=== PATIENT | female | born 1975 | race Caucasian/White ===

== ENCOUNTER 2019-04-24 10:31 | Inpatient (IN) ==
[2019-04-24] MEDS ORDERED: ELAVIL PO PRN (12:47)
[2019-04-24] MEDS ORDERED: NS 1,000 ML IV SCH (13:00)
--- NOTE | 2019-04-24 13:01 | Diag Imaging Result Doc PS360 ---
EXAM: CHEST-1 VIEW 04/24/2019 HISTORY: sepsis protocal TECHNIQUE: Erect AP portable at 1254 COMMENT: There is no evidence of acute cardiac or pulmonary disease. There are no previous studies. There are surgical clips in the left axilla. There are surgical skin clips in the right axillary region. IMPRESSION: No evidence of acute disease. Electronically signed by Rafat Medina 04/24/2019 12:59 PM
--- NOTE | 2019-04-24 13:06 | EKG Report ---
Test Performed on : 04/24/2019 12:57:55 PM Test Reason : tachycardia Blood Pressure : / mmHG Vent. Rate : 117 BPM Atrial Rate : 117 BPM P-R Int : 144 ms QRS Dur : 076 ms QT Int : 324 ms P-R-T Axes : 051 016 037 degrees QTc Int : 451 ms Sinus tachycardia. Otherwise normal ECG No previous ECGs available Confirmed by Viktor Sandoval MD ([id number]) on 04/27/2019 11:44:38 AM
[2019-04-24] MEDS: NORCO-5 PO PRN ×2 (13:17→19:57)
[2019-04-24] MEDS: NS 1,000 ML IV SCH (13:17)
[2019-04-24 14:11] LABS: INR 0.94; PROTIME 13.4 Seconds (11.0-16.0)
[2019-04-24 14:12] LABS: BASO# 0.02 X1000 (0.0-0.2); BASO% 0.1 % (0.0-0.8); EOS# 0.03 X1000 (0.0-0.7); EOS% 0.2 % (0.0-10.0); HEMATOCRIT 44.9 % (37.0-47.0); HEMOGLOBIN 14.8 g/dL (12.0-16.0); IMM GRAN# 0.05 X1000 (0.0-0.04); IMM GRAN% 0.4 % (0.0-0.5); LYMPH# 1.67 X1000 (1.2-3.4); LYMPH% 12.3 % (20.5-51.1); MONO# 1.08 X1000 (0.11-0.59); MONO% 7.9 % (1.7-9.3); MPV 10.1 FL (7.4-10.4); NEUT# 10.75 X1000 (1.4-6.5); NEUT% 79.1 % (42.2-75.2); PLT 260 X1000 (130-400)
[2019-04-24 14:13] LABS: PTT 34.8 Seconds (22.3-41.8)
[2019-04-24 14:21] LABS: AGAP 15; ALB/GLOB RATIO 1.7; ALBUMIN 4.7 g/dL (3.5-5.0); ALKALINE PHOSPHATASE 105 U/L (32-104); BUN 10 mg/dL (8-22); CALCIUM 9.7 mg/dL (8.8-10.2); CHLORIDE 96 mmol/L (98-107); CK PROFILE 55 U/L (24-173); COSMO 272; CREATININE 0.7 mg/dL (0.5-0.9); ESTIMATED GFR > 60; GLUCOSE 111 mg/dL (70-104); GOT 31 U/L (10-30); GPT 27 U/L (10-36); POTASSIUM 4.3 mmol/L (3.5-5.1); SODIUM 136 mmol/L (136-145); TCO2 25 mmol/L (25-35); TOTAL BILIRUBIN 0.39 mg/dL (0.20-1.00); TOTAL PROTEIN 7.4 g/dL (6.3-8.3)
[2019-04-24] MEDS: MAXIPIME 2 GM in NS 100 ML IV SCH ×2 (15:52→23:23)
[2019-04-24 16:23] LABS: URINE SOURCE CLEAN CATCH
[2019-04-24 16:36] LABS: BILIRUBIN URINE NEGATIVE (NEGATIVE); BLOOD URINE TRACE (NEGATIVE); COLOR YELLOW; GLUCOSE URINE NEGATIVE (NEGATIVE); KETONE URINE NEGATIVE (NEGATIVE); LEUKOCYTES URINE LARGE (NEGATIVE); NITRITE URINE NEGATIVE (NEGATIVE); PROTEIN URINE TRACE mg/dL (NEGATIVE); SP GRAVITY URINE 1.016; TURBIDITY URINE HAZY (CLEAR); UROBILINOGEN URINE NORMAL (NORMAL)
[2019-04-24 16:37] LABS: UR EPITHELIAL CELLS <10 /HPF (<10); URINE BACTERIA NEGATIVE /HPF; URINE RBC <10 /HPF (<10); URINE WBC TNTC /HPF (<10)
[2019-04-24] MEDS: DEPAKOTE ER PO SCH ×4 (19:57→20:14)
[2019-04-24] MEDS: NEURONTIN PO SCH ×2 (19:58→20:14)
[2019-04-24] MEDS: DESYREL PO SCH (19:59)
[2019-04-24] MEDS: ZOFRAN IV PRN (20:05)
[2019-04-24] MEDS: TYLENOL PO PRN (20:56)
--- NOTE | 2019-04-24 22:00 | INFECTIOUS DISEASE PROGRESS NO ---
DATE: 04/24/2019 PRESENT ILLNESS: Ms. Oquendo came into the office this morning with a fever, nausea, vomiting, fatigue, and various areas of cellulitis. She has an underlying diagnosis of Re-Re disorder. When we saw her in the office last month she did have an oxacillin sensitive Staph aureus for which we prescribed Keflex, which she never took. MEDICATIONS: She does state that she started the oral Keflex we ordered last month about 4 days ago when she says her symptoms started getting worse. Today we will start her on cefepime 2 g IV every 8 hours. PHYSICAL EXAMINATION: Vital Signs: Temp 102.9, pulse rate 110, respiratory rate 18, blood pressure 139/61. O2 sat 100% on room air. Weight of 79 kg, with height of 5 feet 3 inches. General: This is a chronically ill-appearing, middle-aged female. She is sitting up in bed currently in mild distress due to pain, particularly to the genitalia. HEENT: Atraumatic, normocephalic. Oral mucous membranes are pink and moist. Conjunctivae are pink. Neck: Supple. Trachea is midline. Cardiovascular: Heart rate and rhythm are regular and fast, sinus tach on the monitor. Respiratory: Lung sounds are clear to auscultation bilaterally. No work of breathing is noted. Abdomen: Soft, obese and nontender. Bowel sounds are active. Neurologic: She is awake, alert and oriented, and able to ambulate slowly, but independently. Integumentary: Skin is hot, dry and she has multiple scars to the groin and axilla from previous surgeries. There are currently areas of irritated, erythematous, plaque lesions to her left axilla and midabdomen above the umbilicus. She also has draining lesions around the rectum, right perineum, and vaginal area. Drainage has a white-steven color, and has been cultured. LABORATORY AND X-RAY: Today her white count is 13.6, hemoglobin 14.8, platelet count 206,000. Creatinine is 0.7, estimated GFR is greater than 60. Total bilirubin is 0.39, AST 31, ALT 27, alkaline phosphatase 105. There are two genital cultures and blood cultures which are pending. I sent a right perineal culture which appears to have been labeled "right leg" by the lab. Her EKG shows a sinus tach on the unconfirmed report and chest x-ray shows no evidence of acute disease. ASSESSMENT AND PLAN: Ms. Oquendo is being treated for various areas of cellulitis which have worsened just within the past two days. She states burning and irritation started to her rectum initially and then moved to the vagina yesterday with a rash and drainage, as well as a fever. She states symptoms started 4 days ago and have now progressed to the genitalia after being present to the left axillary and mid abdomen which are also sore, but less painful than the genital lesions. She does have a history of Re-[place] disorder that was diagnosed when she was 25 years old. We have been treating her for the last 2 years on and off for oxacillin-sensitive Staph aureus and strep infections. At this point, she is requesting vancomycin and cefepime; however, we have no documentation of MRSA over the last two years, so at this point we will give her cefepime 2 g IV every 8 hours as a solitary treatment. We will await blood and genitalia cultures. As is her routine, we will need to insert a PICC line and she should be able to go home with antibiotics once culture results are obtained and PICC line is in place. These plans have been discussed with and recommended by Dr. España. COMORBIDITIES: For Ms. 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 Dictated by BLAIR Leija for Krzysztof España MD cc: Krzysztof España MD MTDBob
--- NOTE | 2019-04-24 22:23 | HISTORY AND PHYSICAL ---
CHIEF COMPLAINT: "I am breaking cellulitis." HISTORY OF PRESENT ILLNESS: This is a 43-year-old female with a history of Re-Re skin disorder, high cholesterol, hypothyroid, fibromyalgia, depression and borderline personality disease. She presents as a direct admit from Dr. Krzysztof España's office with cellulitis failed outpatient treatment. The patient has had this cellulitis that is present to the left axillary area, around her umbilicus, bilateral groin, genitalia. It is around her gluteal folds and rectum. She presented to Dr. España's office with a temperature of a 102.3 degrees. She was tachycardic, complaining of nausea, vomiting. PAST MEDICAL HISTORY: 1. Re-Re disease. 2. High cholesterol. 3. Hypothyroid. 4. Anxiety, depression. 5. Borderline personality disorder. 6. Fibromyalgia. PAST SURGICAL HISTORY: Hysterectomy, breast reduction, skin graft to the underarm and groin areas. ALLERGIES: No known drug allergies. HOME MEDICATIONS: A list will be obtained by the nursing staff and once verified will be restarted as appropriate. REVIEW OF SYSTEMS: Discussed patient with pertinent positives stated in HPI. She denied any syncope, dizziness, chest pain, palpitations, any shortness of breath, cough, fever, chills, any recent weight loss or weight gain, any diarrhea, constipation, black or bloody vomitus or stools, hematuria, frequency, urgency. PHYSICAL EXAMINATION: GENERAL: This is a 43-year-old female who is sitting up in the bed in mild distress. VITAL SIGNS: Blood pressure is 139/61 with a heart rate of 107, respirations are 18, temperature is 102.9 degrees, room air saturations are 100%. EYES: Pupils are equal, round, react to light. EOMs are intact. Sclerae are anicteric. HEENT: Head is normocephalic, atraumatic. Mucous membranes are moist. NECK: Supple with trachea midline. CARDIOVASCULAR: Regular rate and rhythm. S1, S2 appreciated. She has no lower extremity edema. Peripheral pulses are palpable x4 extremities. Calves are nontender bilateral with palpation. PULMONARY: Breath sounds are clear with no increased work of breathing noted. Chest rises and falls symmetric with respiration. GASTROINTESTINAL: Abdomen is soft, nontender, nondistended with bowel sounds in all 4 quadrants. NEUROLOGIC: She is alert and oriented x3. SKIN: Warm and dry with fascicular patches noted around the umbilicus, left axillary area to the inner labia extending into the vaginal area to the perineum, around the rectal area. Areas are white as she has Desitin applied to most of these areas. ASSESSMENT AND PLAN: 1. Re-Re disease, unspecified cellulitis. Wound culture was taken in Dr. España's office. We will order blood cultures as well as a urine culture. Antibiotic coverage will be per Dr. España's expertise. 2. Fever secondary to #1. Use Tylenol as needed. 3. Tachycardia. IV hydration and follow vital signs. 4. Pain. We will continue her home medications once verified. 5. Borderline personality disorder. We will continue her home medications. check a BMP and a CBC in the morning. consult Dr. España. Discussed with Dr Miller Further treatments pending hospital course. Dictated by BLAIR Whitlock for Asiya Miller MD cc: BLAIR Whitlock MD [facility]
[2019-04-25] MEDS: NS 1,000 ML IV SCH ×2 (01:01→13:24)
[2019-04-25] MEDS ORDERED: HALL'S COUGH LOZENGE MT ONE (05:30)
[2019-04-25] MEDS: TYLENOL PO PRN ×3 (06:16→22:07)
[2019-04-25] MEDS: PRILOSEC PO SCH (06:16)
[2019-04-25] MEDS: MAXIPIME 2 GM in NS 100 ML IV SCH ×2 (07:44→16:13)
[2019-04-25] MEDS: NORCO-5 PO PRN (07:45)
[2019-04-25 07:54] LABS: BASO# 0.01 X1000 (0.0-0.2); BASO% 0.1 % (0.0-0.8); EOS# 0.02 X1000 (0.0-0.7); EOS% 0.2 % (0.0-10.0); HEMATOCRIT 37.7 % (37.0-47.0); HEMOGLOBIN 12.4 g/dL (12.0-16.0); IMM GRAN# 0.05 X1000 (0.0-0.04); IMM GRAN% 0.4 % (0.0-0.5); LYMPH# 1.12 X1000 (1.2-3.4); LYMPH% 9.5 % (20.5-51.1); MCH 29.4 PG (27-31); MCHC 32.9 g/dL (33-37); MCV 89.3 FL (81-99); MONO# 1.09 X1000 (0.11-0.59); MONO% 9.3 % (1.7-9.3); MPV 10.3 FL (7.4-10.4); NEUT# 9.45 X1000 (1.4-6.5); NEUT% 80.5 % (42.2-75.2); PLT 199 X1000 (130-400); RBC 4.22 XMIL (4.2-5.4); RDW 12.8 % (11.5-14.5); WBC 11.74 X1000 (4.8-10.8)
[2019-04-25 07:59] LABS: AGAP 15; BUN 7 mg/dL (8-22); CALCIUM 8.3 mg/dL (8.8-10.2); CHLORIDE 99 mmol/L (98-107); COSMO 272; CREATININE 0.7 mg/dL (0.5-0.9); ESTIMATED GFR > 60; GLUCOSE 130 mg/dL (70-104); POTASSIUM 3.8 mmol/L (3.5-5.1); SODIUM 136 mmol/L (136-145); TCO2 22 mmol/L (25-35)
[2019-04-25] MEDS: VALTREX PO SCH ×2 (10:42→21:23)
[2019-04-25] MEDS: NEURONTIN PO SCH ×2 (10:43→20:25)
[2019-04-25] MEDS: CYMBALTA PO SCH (10:43)
[2019-04-25] MEDS: ABILIFY PO SCH (10:43)
[2019-04-25] MEDS: MYCOSTATIN SUSP PO SCH ×3 (13:19→20:25)
[2019-04-25] MEDS: NORCO-7.5 PO PRN ×2 (14:46→22:17)
[2019-04-25] MEDS: ZOFRAN IV PRN ×2 (14:47→20:44)
--- NOTE | 2019-04-25 16:05 | Diag Imaging Result Doc PS360 ---
EXAM: CT ABD/PELVIS W/IV CONT ONLY INDICATION: abdominal pain TECHNIQUE: This exam was performed using automated exposure control, adjustment of mA or kV according to patient size, and/or use of iterative reconstruction technique. COMPARISON: None. FINDINGS: There is trace subsegmental atelectasis at the left lung base. There is moderate diffuse hepatic steatosis. The spleen is borderline prominent. The pancreas and adrenal glands are unremarkable. There is a 1.7 cm low dense focus associated with the left renal cortex. It is higher density than that of simple fluid. It probably represents a cyst containing blood products or proteinaceous debris. But is technically nonspecific. There is no obvious enhancement. If warranted, follow-up with ultrasound could be performed to assure stability. The kidneys are unremarkable, otherwise. The urinary bladder is unremarkable. There is evidence of a prior hysterectomy. The most inferior portion of the rectum is out of the [id number]. The appendix is normal. There is no focal bowel wall thickening. There are a few nondistended loops of small bowel that contain air-fluid levels. There are nonspecific. It could represent mild ileus. There is no obstructive bowel pattern. There is a very small hiatal hernia. The remainder of the GI tract is essentially unremarkable. IMPRESSION: 1.Hepatic steatosis. 2.Low dense left renal nodular focus that probably represents a blood filled cyst. Please see above discussion. 3.A few nondistended loops of small bowel containing air-fluid levels that are nonspecific, possibly a mild ileus. Electronically signed by Min Salas 04/25/2019 4:02 PM
[2019-04-25] MEDS: DEPAKOTE ER PO SCH ×2 (20:26→20:28)
[2019-04-25] MEDS: DESYREL PO SCH (20:28)
[2019-04-25] MEDS: COLACE PO SCH (20:30)
[2019-04-25] MEDS: ANUSOL-HC CREAM PR SCH (20:30)
[2019-04-25] MEDS: MIRALAX PO SCH (20:30)
--- NOTE | 2019-04-25 20:30 | INFECTIOUS DISEASE PROGRESS NO ---
DATE: 04/25/2019 PRESENT ILLNESS: The patient has Re-Re disease and has developed severe cellulitis because of that illness. She has axillary cellulitis, an area of cellulitis on her abdominal wall and also vaginal cellulitis. Today it was discovered that she has these white vesicular lesions which I think could be due to herpes simplex. In the past the patient has had oxacillin sensitive Staph aureus cellulitis infections. MEDICATIONS: The patient is on cefepime. PHYSICAL EXAMINATION: Temperature is 100.7 degrees, pulse 108, respirations 22, blood pressure 93/49.General: This is an ill-appearing young female. She is in no acute distress. Head/eyes/ears/nose/throat: She can hear my spoken words and see near objects. Patient has white coating of her tongue and also there are erythematous areas at the corners of her mouth also. Neck: No meningismus. Lungs: Clear to auscultation. Cardiovascular: Heart rate is regular. Abdomen: Soft and nontender. There is approximately a 4 x 1.5 cm area on her abdominal wall that is erythematous. Pelvic: Patient's vaginal area is erythematous. There are numerous vesicular lesions also. Neurologic: Patient is alert. She ambulates without difficulty. There is no tremor. LAB AND X-RAY: Patient's chest x-ray showed no evidence of acute disease. The laboratory studies show a CBC with a white count of 11,740, hemoglobin 12.4 and platelet count 199,000. Creatinine is 0.7. GFR is greater than 60. Urine culture and vaginal culture are negative. ASSESSMENT AND PLAN: The patient has areas of cellulitis as mentioned above. The patient has oral candidiasis. My plan is to continue cefepime. I have taken some swabs from her vaginal area and sent them for HSV by PCR. I am also going to start the patient on nystatin. Also, in view of the fact that the patient is having so many infections I am going to check her immunoglobulin levels also. COMORBIDITIES: The main comorbidity is that the patient has a Re-Re disease which unfortunately predisposes her to getting cutaneous infections. cc: Krzysztof España MD
[2019-04-25] MEDS: LOVENOX SUBQ SCH (20:31)
[2019-04-26] MEDS: NS 1,000 ML IV SCH ×3 (00:14→18:28)
[2019-04-26] MEDS: ZOFRAN IV PRN ×3 (00:15→16:43)
[2019-04-26] MEDS: MAXIPIME 2 GM in NS 100 ML IV SCH ×3 (00:18→16:42)
[2019-04-26] MEDS: TYLENOL PO PRN (04:04)
[2019-04-26] MEDS: NORCO-7.5 PO PRN ×3 (04:05→22:44)
[2019-04-26] MEDS: PRILOSEC PO SCH ×2 (05:31→06:21)
[2019-04-26 06:40] LABS: BASO# 0.01 X1000 (0.0-0.2); BASO% 0.1 % (0.0-0.8); HEMATOCRIT 34.5 % (37.0-47.0); HEMOGLOBIN 11.2 g/dL (12.0-16.0); IMM GRAN# 0.02 X1000 (0.0-0.04); IMM GRAN% 0.2 % (0.0-0.5); LYMPH# 0.88 X1000 (1.2-3.4); LYMPH% 8.5 % (20.5-51.1); MCH 29.2 PG (27-31); MCHC 32.5 g/dL (33-37); MCV 89.8 FL (81-99); MONO# 0.75 X1000 (0.11-0.59); MONO% 7.2 % (1.7-9.3); MPV 9.9 FL (7.4-10.4); NEUT# 8.65 X1000 (1.4-6.5); PLT 186 X1000 (130-400); RBC 3.84 XMIL (4.2-5.4); RDW 12.7 % (11.5-14.5); WBC 10.41 X1000 (4.8-10.8)
[2019-04-26 07:08] LABS: AGAP 9; BUN 5 mg/dL (8-22); CALCIUM 8.2 mg/dL (8.8-10.2); CHLORIDE 104 mmol/L (98-107); COSMO 274; CREATININE 0.6 mg/dL (0.5-0.9); ESTIMATED GFR > 60; GLUCOSE 116 mg/dL (70-104); POTASSIUM 3.6 mmol/L (3.5-5.1); SODIUM 138 mmol/L (136-145); TCO2 25 mmol/L (25-35)
[2019-04-26] MEDS: VALTREX PO SCH ×3 (08:20→22:34)
[2019-04-26] MEDS: MYCOSTATIN SUSP PO SCH ×4 (08:20→22:43)
[2019-04-26] MEDS: MIRALAX PO SCH ×2 (08:20→22:34)
[2019-04-26] MEDS: SYNTHROID PO SCH (08:21)
[2019-04-26] MEDS: COLACE PO SCH ×2 (08:21→22:33)
[2019-04-26] MEDS: NEURONTIN PO SCH ×2 (08:21→22:33)
[2019-04-26] MEDS: ABILIFY PO SCH (08:21)
[2019-04-26] MEDS: CYMBALTA PO SCH (08:21)
[2019-04-26] MEDS: BACTROBAN OINTMENT TOP SCH ×3 (08:22→18:28)
[2019-04-26] MEDS: ANUSOL-HC CREAM PR SCH ×2 (08:23→22:50)
[2019-04-26] MEDS ORDERED: SYNTHROID PO SCH (09:30)
[2019-04-26] MEDS: LACTULOSE PO SCH ×3 (09:58→22:50)
--- NOTE | 2019-04-26 22:10 | PROGRESS NOTE ---
DATE: 04/26/2019 SUBJECTIVE: The patient continues to complain of nausea and pain with swallowing. OBJECTIVE: T-max 100.5 degrees, blood pressure 104/50, heart rate 95, respirations 16, O2 saturation 96% on room air.General: This is a middle-aged female sitting up in bed, in no acute distress. Heart: S1, S2 normal. Regular rate and rhythm. Lungs clear to auscultation bilaterally. Abdomen: Positive bowel sounds. Soft, nontender, nondistended. Extremities: No edema. No cyanosis. Neurologic: The patient is alert and oriented x3. LABORATORY DATA: Hemoglobin 11, hematocrit 34, white blood cell count 10. BUN 5, creatinine 0.6, glucose 116, calcium 8.2. ASSESSMENT AND PLAN: 1. Re-Re disease with severe cellulitis involving the abdomen, axilla and vaginal region. Continue with antibiotic and antiviral therapy as directed by Dr. España. 2. Oral candidiasis. The patient is on nystatin swish and spit. 3. Nausea with odynophagia. Gastroenterology has been consulted for consideration of esophagogastroduodenoscopy. 4. Neuropathy. Continue on gabapentin. 5. Constipation. Continue with scheduled laxative therapy. 6. Hypothyroidism. Continue on Synthroid. 7. Deep vein thrombosis prophylaxis. Continue on Lovenox. cc: Asiya Miller MD MTDD
[2019-04-26] MEDS: LOVENOX SUBQ SCH (22:33)
[2019-04-26] MEDS: DEPAKOTE ER PO SCH ×2 (22:33)
[2019-04-26] MEDS: DESYREL PO SCH (22:34)
[2019-04-27] MEDS: MAXIPIME 2 GM in NS 100 ML IV SCH ×4 (01:18→23:24)
[2019-04-27] MEDS: TYLENOL PO PRN (05:36)
[2019-04-27 06:09] LABS: HEMOGLOBIN 10.9 g/dL (12.0-16.0); MCH 29.9 PG (27-31); MCHC 32.1 g/dL (33-37); MCV 93.2 FL (81-99); MPV 9.7 FL (7.4-10.4); RBC 3.65 XMIL (4.2-5.4); RDW 13.2 % (11.5-14.5); WBC 5.43 X1000 (4.8-10.8)
[2019-04-27] MEDS: NS 1,000 ML IV SCH ×2 (06:11→20:19)
[2019-04-27] MEDS: PRILOSEC PO SCH (06:11)
[2019-04-27 06:21] LABS: AGAP 9; BUN 3 mg/dL (8-22); CALCIUM 8.3 mg/dL (8.8-10.2); CHLORIDE 106 mmol/L (98-107); COSMO 281; CREATININE 0.6 mg/dL (0.5-0.9); ESTIMATED GFR > 60; GLUCOSE 96 mg/dL (70-104); POTASSIUM 3.6 mmol/L (3.5-5.1); SODIUM 143 mmol/L (136-145); TCO2 28 mmol/L (25-35)
[2019-04-27] MEDS ORDERED: GAMUNEX-C 10% IV ONE (08:00)
[2019-04-27] MEDS: ABILIFY PO SCH (08:10)
[2019-04-27] MEDS: CYMBALTA PO SCH (08:11)
[2019-04-27] MEDS: NEURONTIN PO SCH ×2 (08:11→21:44)
[2019-04-27] MEDS: VALTREX PO SCH ×3 (08:11→21:44)
[2019-04-27] MEDS: MYCOSTATIN SUSP PO SCH ×4 (08:11→21:43)
[2019-04-27] MEDS: SYNTHROID PO SCH (08:12)
[2019-04-27] MEDS: LACTULOSE PO SCH ×2 (08:12→23:19)
[2019-04-27] MEDS: ANUSOL-HC CREAM PR SCH ×2 (08:12→23:20)
[2019-04-27] MEDS: MIRALAX PO SCH ×2 (08:12→23:19)
[2019-04-27] MEDS: COLACE PO SCH ×2 (08:12→21:44)
[2019-04-27] MEDS: BACTROBAN OINTMENT TOP SCH ×3 (11:04→17:48)
[2019-04-27] MEDS: ZOFRAN IV PRN (12:15)
[2019-04-27] MEDS ORDERED: BENADRYL IV ONE (12:48)
[2019-04-27] MEDS ORDERED: SOLU-MEDROL IV ONE (12:49)
[2019-04-27] MEDS ORDERED: SODIUM CHLORIDE 0.9% INJ ONE (12:50)
[2019-04-27] MEDS ORDERED: PEPCID IV ONE (12:50)
[2019-04-27] MEDS: NORCO-7.5 PO PRN ×2 (13:11→23:18)
--- NOTE | 2019-04-27 16:16 | PROGRESS NOTE ---
DATE: 04/27/2019 SUBJECTIVE: The patient states that she continues to have pain when she tries to swallow, as well as nausea. OBJECTIVE: Vital Signs: Temperature 98.4 degrees, blood pressure 128/79, heart rate 81, respirations 16, O2 saturation is 100% on room air. General: This is a middle- aged female sitting up in bed in no acute distress. Heart: S1, S2 normal. Regular rate and rhythm. Lungs: Equal air entry bilaterally. No crackles. No rales. Abdomen: Positive bowel sounds. Soft, nontender, nondistended. Extremities: No edema. No cyanosis. Neuro: The patient is alert and oriented x 4. LABORATORY DATA: Reviewed. ASSESSMENT/PLAN: 1. Re-Re disease with severe cellulitis involving the axilla, abdomen and vaginal region. Continue with antibiotic and antiviral therapy as directed by Dr. España. 2. Oral candidiasis. Continue on Nystatin. 3. Nausea with odynophagia. Patient is scheduled to undergo an esophagogastroduodenoscopy tomorrow. 4. Neuropathy. Continue on gabapentin. 5. Hypothyroidism. Continue on Synthroid. 6. Constipation. Continue with the laxative therapy. 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 8. Deep vein thrombosis prophylaxis. We will hold the Lovenox due to the scheduled endoscopy tomorrow. cc: Asiya Miller MD MTDD
[2019-04-27] MEDS: DEPAKOTE ER PO SCH ×2 (21:43)
[2019-04-27] MEDS: DESYREL PO SCH (21:43)
[2019-04-28] MEDS: ZOFRAN IV PRN (00:10)
[2019-04-28] MEDS: ATIVAN IV PRN ×2 (00:10→12:11)
[2019-04-28] MEDS: NS 1,000 ML IV SCH ×2 (03:56→07:37)
--- NOTE | 2019-04-28 04:11 | PROGRESS NOTE ---
DATE: 04/25/2019 SUBJECTIVE: The patient complains of odynophagia and nausea. OBJECTIVE: Vital Signs: Temperature 100.4 degrees, blood pressure 116/57, heart rate 110, respirations 18, O2 saturation 98% on room air. General: This is a middle-aged female sitting up in bed in no acute distress. Head: Normocephalic, atraumatic. Heart: S1, S2 normal. Tachycardic. Lungs: Equal air entry bilaterally. No wheezing. No rales. No rhonchi. Abdomen: Positive bowel sounds. Soft, nontender, nondistended. Skin: The patient has multiple scars in the groin and axilla. Genitalia: The patient has multiple draining lesions involving the rectum, perineum, and vaginal areas. LABS: White blood cell count 11, hemoglobin 12, hematocrit 37. Sodium 136, potassium 3.8, chloride 99, CO2 22, BUN 7, creatinine 0.7. ASSESSMENT AND PLAN: 1. Cellulitis involving the rectum, perineum, and vaginal areas. We will continue with antibiotic therapy as directed by Dr. España. 2. Odynophagia. The patient has oral candidiasis. The patient may also have esophagitis. Will consult with GI. 3. Nausea with vomiting. A CT of the abdomen and pelvis is currently pending. Will continue with a full liquid diet and plus on antiemetics. 4. Leukocytosis. Improved. Continue with the current antibiotic regimen. 5. Hypothyroidism. Continue on Synthroid. 6. Borderline personality disorder. Continue on the current psychiatric medications. 7. Deep vein thrombosis prophylaxis. Will start the patient on Lovenox. cc: MD LIEN Alarcon
[2019-04-28] MEDS: PRILOSEC PO SCH (06:08)
[2019-04-28 06:18] LABS: HEMATOCRIT 35.6 % (37.0-47.0); HEMOGLOBIN 11.7 g/dL (12.0-16.0); MCH 29.9 PG (27-31); MCHC 32.9 g/dL (33-37); MPV 10.4 FL (7.4-10.4); RBC 3.91 XMIL (4.2-5.4); RDW 13.2 % (11.5-14.5); WBC 7.82 X1000 (4.8-10.8)
[2019-04-28 06:38] LABS: AGAP 13; BUN 6 mg/dL (8-22); CALCIUM 8.4 mg/dL (8.8-10.2); CHLORIDE 106 mmol/L (98-107); COSMO 283; CREATININE 0.6 mg/dL (0.5-0.9); ESTIMATED GFR > 60; GLUCOSE 107 mg/dL (70-104); POTASSIUM 4.2 mmol/L (3.5-5.1); SODIUM 143 mmol/L (136-145); TCO2 24 mmol/L (25-35)
[2019-04-28] MEDS: MAXIPIME 2 GM in NS 100 ML IV SCH (09:36)
[2019-04-28] MEDS: COLACE PO SCH (09:36)
[2019-04-28] MEDS: VALTREX PO SCH (09:38)
[2019-04-28] MEDS: ABILIFY PO SCH (09:38)
[2019-04-28] MEDS: NEURONTIN PO SCH (09:38)
[2019-04-28] MEDS: SYNTHROID PO SCH (09:38)
[2019-04-28] MEDS: CYMBALTA PO SCH (09:39)
[2019-04-28] MEDS: LACTULOSE PO SCH (09:39)
[2019-04-28 11:48] VITALS: BP 141/66
[2019-04-28] MEDS ORDERED: NEXIUM IV SCH (12:00)
[2019-04-28] MEDS ORDERED: SODIUM CHLORIDE 0.9% INJ SCH (12:00)
--- NOTE | 2019-04-28 15:40 | INFECTIOUS DISEASE PROGRESS NO ---
DATE: 04/28/2019 PRESENT ILLNESS: The patient has Re-Re disease and the patient came in with severe cellulitis in the axillary area. There is also an area on the abdominal wall. The patient also had vaginal cellulitis. A culture taken from the axillary area as an outpatient grew group B. From the vaginal area a specimen was sent for HSV by PCR which was positive. Therefore the patient had herpes vaginal cellulitis. 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 The IgA level was 198. The patient received infusion of IVIG and tolerated it well. The patient also developed oral candidiasis. MEDICATIONS: The patient is on cefepime, Valtrex and nystatin swish and swallow. The patient also received an infusion of IVIG and tolerated it well. PHYSICAL EXAMINATION: Vital Signs: Temperature is 98.3 degrees, pulse 51, respirations 20, blood pressure 139/65. General: This is a somewhat ill-appearing young female. She is in no acute distress. Head, eyes, ears, nose, and throat: She can hear my spoken words and see near objects. She does not have any white coating on her tongue now. Neck: No meningismus. Lungs: Clear to auscultation. Cardiovascular: Heart rate is regular. Abdomen: Soft and nontender. Pelvic: The patient's vaginal area shows decrease in the vesicles. Also in the perirectal area there are some vesicles. The patient's erythema in her left axilla and on her abdominal wall has gotten much better also. Neurologic: The patient is lethargic. She can move her extremities. She is arousable and can talk in a coherent fashion. LAB AND X-RAY: The patient's CBC today shows a white count of 7820, hemoglobin 11.7, and platelet count 244,000. The patient's creatinine is 0.6. GFR is greater than 60. The patient's PCR from the vaginal area was positive for herpes simplex virus type 1. A culture taken at the office by my nurse practitioner grew group B Streptococcus. ASSESSMENT AND PLAN: The patient is going home today. She is going home on Valtrex 1 g p.o. every 12 hours for 1 week. She is also going to be on amoxicillin 500 mg p.o. every 8 hours. That will also be for 1 week and the patient will be going home on nystatin as well. I have electronically sent the prescriptions to the patient's pharmacy of her choice. The plan is to have the patient come back to my office in 1 week. As regarding the patient's immunoglobulin deficiency, a repeat IgG and IgA will be done in 8 weeks and if the IgG level is low then I think the patient would be a candidate for IVIG. She has recurrent episodes of sore throat. She also has recurrent episodes of cellulitis that caused the patient to be admitted to the hospital this time and the patient also has recurrent urinary tract infections. COMORBIDITY: She has Re-Re disease. cc: Krzysztof España MD MTDD
--- NOTE | 2019-04-28 17:18 | GASTROENTEROLOGY PROGRESS NOTE ---
DATE: 04/28/2019 SUBJECTIVE: Patient is resting in bed. She is feeling better. She denies any nausea or vomiting. She denies abdominal pain. She is on broad-spectrum antibiotics by Dr. España for Re-Re disease with severe cellulitis involving the left axilla, abdominal wall, and vaginal region. I also spoke to Dr. España and he told me that the patient has a positive PCR of HSV 1 from the vaginal area. OBJECTIVE: Vital signs: Temperature of 98.6 degrees, pulse rate of 55, respiratory rate of 20, blood pressure 140/60, saturating 99% on room air. Body weight of 174 pounds 4 ounces, BMI of 30.9 kg m/2. General appearance: Moderately built, moderately nourished, lying in bed, in no acute distress. HEENT: Mild pallor. No icterus. Neck: Supple. Abdomen: Soft, nontender. No guarding. No rebound. There is cellulitis around the umbilical area. Extremities: She has cellulitis in the left axilla and the periumbilical area and in the vaginal area. Neurologic: She is alert, awake, oriented x3. LABS: Hemoglobin and hematocrit are 11.7 and 35.6, white count of 7.82, platelet count of 244,000. Sodium 140, potassium 4.2, chloride 106, bicarb 24, anion gap 13, BUN of 6, creatinine 0.6, glucose of 107, calcium 8.4. HSV 1 PCR is positive in the vaginal region. IgG level was 528 which is slightly low. Urine culture showed no growth. Blood culture showed no growth. Vaginal culture, routine culture showed no growth. CT of the abdomen and pelvis showed hepatic steatosis. Low dense left renal nodular focus measuring 1.7 cm in the left renal cortex. It probably represents a cyst containing blood products or protein issues debris but is technically nonspecific. There are a few nondistended loops of small bowel that contain air-fluid levels that are nonspecific. It could represent mild ileus. There is no obstructive bowel pattern. There is a very small hiatal hernia. IMPRESSION AND PLAN: 1. Re-Re disease with severe cellulitis involving the axilla, abdomen, and the vaginal region. She is on antibiotics and antiviral therapy per Dr. España. 2. Oral candidiasis. She is on nystatin. 3. Nausea and odynophagia. She has improved. She denies any vomiting. We will switch her to Nexium b.i.d. The patient will follow up in the clinic in 1 week of discharge. At that time, we will perform outpatient EGD. Most likely her nausea is secondary to broad-spectrum antibiotics. We will also start her on Culturelle 1 capsule p.o. b.i.d. 4. Constipation. We will continue lactulose 30 mL p.o. b.i.d. We will start her on Culturelle 1 capsule p.o. b.i.d. 5. Neuropathy. She is on gabapentin. 6. Hypothyroidism. She is on Synthroid. 7. 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 She is on Valtrex. 8. Deep vein thrombosis prophylaxis per the primary team. 9. Gastrointestinal prophylaxis. Will start her on Nexium. The above plan was discussed with the patient and all questions answered. Please call us with any further questions. cc: MD Krzysztof High MD Lindsay Smith
[2019-04-28] MEDS ORDERED: CULTURELLE PO SCH (21:00)
== END 2019-04-28 17:11 | disposition home health service (06) | DRG 758 ==
LOC: DIRADM 10:31 → 4N 10:47
PROVIDERS: ATTEND Internal Medicine
CPT/HCPCS: 71010; 71045; 74177; 80048; 80053; 81001; 82550; 82784; 83605; 84484; 85025; 85027; 85610; 85651; 85730; 86140; 87040; 87070; 87077; 87088; 87529; 93005; 93010; 94761; A9270; J0692; J1200; J1561; J1650; J2060; J2405; J2920; J7030; Q9967; S0028